=== PATIENT | female | born 1960 | race African-American/Black ===

== ENCOUNTER 2019-01-18 18:22 | Emergency (ER) | payer MEDICAID ==
[~2019-01-18] VITALS: Ht 170.2 cm; Wt 117.0 kg
[2019-01-18] MEDS ORDERED: ACETAMINOPHEN WITH CODEINE 300/30MG TABLET PO ONE (23:15)
[2019-01-19] MEDS ORDERED: ACETAMINOPHEN 325MG TABLET PO ONE (00:30)
[2019-01-19 02:02] VITALS: BP 151/79
== END 2019-01-19 02:00 | disposition home or self-care (01) ==
LOC: ER 19:04
DX: M25.561 Pain in right knee (principal); M17.11 Unilateral primary osteoarthritis, right knee; E11.9 Type 2 diabetes mellitus without complications; M19.90 Unspecified osteoarthritis, unspecified site; Z88.0 Allergy status to penicillin
CPT/HCPCS: 73562; 99283